=== PATIENT | female | born 1975 | race Caucasian/White ===

== ENCOUNTER → 2018-11-14 | Outpatient (CLI) | payer OTHER ==
[2015-02-09 13:30] VITALS: BP 121/74
[~2018-11-14] MED LIST: PNV1TABL34 PO
[2018-11-14 12:55] LABS: BASO # 0.1 x10^3/uL (0.0-0.2); BASO % 1 % (0-3); EOS % 0 % (0-3); HEMATOCRIT 27.9 % (36.0-47.0); HEMOGLOBIN 8.8 g/dL (12.0-15.5); LYMPH # 1.3 x10^3/uL (1.0-4.8); LYMPH % 11 % (24-48); MEAN CORPUSCULAR HEMOGLOBIN 23 pg (25-35); MEAN CORPUSCULAR HGB CONC 32 g/dL (31-37); MEAN CORPUSCULAR VOLUME 72 fL (79-100); MONO # 0.4 x10^3/uL (0.0-1.1); MONO % 3 % (0-9); NEUT # 10.3 x10^3/uL (1.8-7.7); NEUT % 85 % (31-73); PLATELET COUNT 293 x10^3/uL (140-400); RED BLOOD COUNT 3.88 x10^6/uL (3.50-5.40); RED CELL DISTRIBUTION WIDTH 18.2 % (11.5-14.5); WHITE BLOOD COUNT 12.1 x10^3/uL (4.0-11.0)
[2018-11-14 13:23] LABS: FREE T4 1.21 ng/dL (0.76-1.46); THYROID STIM HORMONE (TSH) 0.702 uIU/mL (0.358-3.74)
[2018-11-14 14:20] LABS: % ATYL 1 % (0-0); % BANDS 6 % (0-9); % LYMPHS 8 % (24-48); % MONOS 1 % (0-10); % SEGS 84 % (35-66); ANISOCYTOSIS SLIGHT; HYPOCHROMIA MOD; MICROCYTOSIS MOD; PLT ESTIMATE ADEQUATE (ADEQUATE)
[2018-11-14 20:08] LABS: ESTRADIOL LEVEL 23.5 pg/mL (.); FSH 9.2 mIU/mL (.); PROLACTIN 9.9 ng/mL (4.8-23.3)
== END | disposition home or self-care (01) ==
LOC: LAB 12:29
PROVIDERS: ATTEND Obstetrics & Gynecology
DX: N93.9 Abnormal uterine and vaginal bleeding, unspecified (principal); N92.0 Excessive and frequent menstruation with regular cycle; N94.6 Dysmenorrhea, unspecified
CPT/HCPCS: 36415; 82670; 83001; 84146; 84439; 84443; 85007; 85025

== ENCOUNTER → 2018-11-24 | Outpatient (CLI) | payer OTHER ==
[2015-02-09 13:30] VITALS: BP 121/74
--- NOTE | 2018-11-24 15:48 | KCIC ---
EXAM: Pelvic sonogram. HISTORY: Abnormal uterine bleeding. TECHNIQUE: Sonographic imaging of the pelvis was performed. COMPARISON: None. FINDINGS: The uterus measures 10.9 x 4.8 x 7.2 cm. The endometrial stripe measures 15 mm in thickness. The ovaries are normal in size and demonstrate normal blood flow. There are uterine parenchymal calcifications. There is no pelvic free fluid. IMPRESSION: 1. Prominent uterus containing small calcifications. No suspicious uterine mass is seen. 2. Prominent endometrial stripe. Correlate with the phase the patient's menstrual cycle. Electronically signed by: Julieth Marvin MD (11/24/2018 3:45 PM) [place] [id number]
== END | disposition home or self-care (01) ==
LOC: KCIC US 12:15
PROVIDERS: ATTEND Obstetrics & Gynecology
DX: N85.8 Other specified noninflammatory disorders of uterus (principal); N93.9 Abnormal uterine and vaginal bleeding, unspecified; N92.0 Excessive and frequent menstruation with regular cycle; N94.6 Dysmenorrhea, unspecified
CPT/HCPCS: 76856

== ENCOUNTER 2020-11-03 08:19 | Day surgery (SDC) | payer OTHER ==
[~2020-11-03] VITALS: Ht 162.6 cm; Wt 90.0 kg
[~2020-11-03 08:19] MED LIST changes: +HYDROmorphone 2 MG/ML VIAL IVP PRN; +IV RINGERS,LACTATED 1000ML 1,000 ML IV SCH; +MORPHINE SULFATE 2 MG/ML INJ. IVP PRN; +PROCHLORPERAZINE 10 MG/2 ML VIAL. IVP PRN; +fentaNYL PF VIAL 100 MCG/2 ML VIAL IVP PRN
[2020-11-03 08:34] VITALS: BP 120/64
[2020-11-03] MEDS ORDERED: MIDAZOLAM HCL/PF 2 MG/2 ML VIAL. ONE (08:36)
[2020-11-03] MEDS ORDERED: PROPOFOL 10 MG/ML (20ML) VIAL. IV ONE (08:36)
[2020-11-03] MEDS ORDERED: fentaNYL PF VIAL 100 MCG/2 ML VIAL ONE (08:36)
[2020-11-03] MEDS ORDERED: LIDOCAINE 2% PF 5 ML VIAL. ONE (08:36)
[2020-11-03] MEDS ORDERED: ONDANSETRON PF 4 MG/2 ML VIAL. ONE (09:47)
[2020-11-03] MEDS ORDERED: DEXAMETHASONE SOD PHOS 4 MG/ML VIAL ONE (09:47)
[2020-11-03] MEDS ORDERED: KETOROLAC 30 MG/ML VIAL. ONE (09:47)
[2020-11-03] MEDS ORDERED: SEVOFLURANE 31 TO 60 MINUTES. IH ONE (10:16)
--- NOTE | 2020-11-03 10:29 | PDOC ---
BRIEF OPERATIVE NOTE Date: Nov 03, 2020 Pre-Op Diagnosis 1. AUB 2. Endometrial polyp Post-Op Diagnosis Same Procedure Performed Op [facility] Surgeon Dr. Feng Anesthesia Type: General Blood Loss 5 ml Specimens Obtained endometrial tissue/endometrial polyp Findings nml size uterus, endometrial polyp, hetrerogenous endometrium, nml fallopian tube ostia alvaro. Fluid deficit: 1, 000 ml. Complications none Operative Note see dictation KAE FENG Jr, MD Nov 03, 2020 10:29
[2020-11-03] MEDS ORDERED: OXYC-314 PO ×2 (10:31→11:25)
--- NOTE | 2020-11-03 10:36 | DISCH ---
DISCHARGE INSTRUCTIONS Condition on Discharge Condition on Discharge: Stable Activity After Discharge Activity Instructions for Disc: Activity as tolerated Lifting Instructions after Dis: No heavy lifting, No pulling or pushing, Do not lift >10 pounds Driving Instructions after Dis: Do not drive today Weight Bearing Status after Di: As tolerated Diet after Discharge Diet after Discharge: Regular Diet Texture: Regular Contacting the DRIrma after DC Call your doctor for: Concerns you may have Follow-Up Follow up with: Dr. Feng in 1 week. Treatment/Equipment after DC Adaptive Equipment Issued: None KAE FENG Jr, MD Nov 03, 2020 10:36
[2020-11-03] MEDS ORDERED: oxyCODONE/APAP 5/325 1 TAB TABLET PO ONE (11:00)
[2020-11-03 11:02] VITALS: BP 113/71
--- NOTE | 2020-11-03 11:22 | OP ---
DATE OF SURGERY: 11/03/2020 PREOPERATIVE DIAGNOSES: 1. Abnormal uterine bleeding. 2. Endometrial polyp. POSTOPERATIVE DIAGNOSES: 1. Abnormal uterine bleeding. 2. Endometrial polyp. PROCEDURE: Operative hysteroscope. SURGEON: Chester Feng MD. ANESTHESIA: GETA. ESTIMATED BLOOD LOSS: 5 mL. FINDINGS: Normal size uterus, endometrial polyp, heterogeneous endometrium, normal fallopian tube ostia bilaterally. FLUID DEFICIT: 1000 mL. COMPLICATIONS: None. SUMMARY: A 45-year-old with abnormal uterine bleeding and endometrial polyp, counseled on risks, benefits, and expectations of operative hysteroscopy and voiced clear understanding to proceed. DESCRIPTION OF PROCEDURE: The patient was taken to surgery suite and placed in dorsal lithotomy position, was prepped with Betadine solution and draped in sterile fashion. After adequate anesthesia, weighted speculum and curved Steve were placed vaginally. The anterior lip of the cervix was grasped with single tooth tenaculum. The cervix was dilated with Hegar dilators up to size 8. TruClear hysteroscope was placed. There was heterogeneous endometrium along with endometrial polyp that was resected with the TruClear device until there was a homogeneous endometrial canal. Fallopian tube ostia appeared normal and patent bilaterally. The hysteroscope was then removed. Single tooth tenaculum and weighted speculum were also removed. The patient tolerated the procedure well and was taken to recovery room in stable condition. Sponge and needle count correct x 3. CARA/LUIS ANTONIO/KARUNA DR: CARA/cedric TID: [id number]
--- NOTE | 2020-11-08 09:07 | PATHOLOGY ---
[facility] Accession Number: [id number] . 01 Material submitted: . endometrium - POLYPS/ENDOMETRIAL TISSUE . 01 Clinical history: . OPERATIVE HYSTEROSCOPY . 02 Diagnosis: Endometrial tissue: - Endometrial polyp and disordered early secretory endometrium. . ([facility]:mm; 11/04/2020) [facility] 11/08/2020 0808 Local . 02 Comment: There is no atypia or evidence of malignancy. . ([facility]:mm; 11/04/2020) . 02 Electronically signed: . Ion Hylton MD, Pathologist NPI- [id number] . 01 Gross description: . The specimen is received in formalin, labeled "Carolyne Basurto D, polyps/endometrial tissue". It consists of multiple lewis irregular soft tissue fragments measuring 4.0 x 3.0 x 0.2 cm in aggregate. The specimen is placed in biopsy bags and entirely submitted in A1-A2. ([facility]; 11/03/2020) [facility] 11/03/2020 1658 Local . 02 Pathologist provided ICD-10: N84.0, N85.9 . 02 CPT . 933694 Specimen Comment: A courtesy copy of this report has been sent to [phone] Specimen Comment: Report sent to Performed at: 01 [facility] [address] [facility] [address], [place] [id number] MD Bruce Hunter MD Phone: [phone] Performed at: 02 [facility] [address] [place], [place] [id number] MD Ion Hylton MD Phone: [phone]
== END 2020-11-03 11:36 | disposition home or self-care (01) ==
LOC: SURG 08:19
PROVIDERS: ATTEND Obstetrics & Gynecology
DX: N93.9 Abnormal uterine and vaginal bleeding, unspecified (principal); N84.0 Polyp of corpus uteri; E78.00 Pure hypercholesterolemia, unspecified; Z98.890 Other specified postprocedural states
CPT/HCPCS: 58558; 81025; A4930; J0690; J1100; J1885; J2405; J2704; J3010; 88305; J2250